=== PATIENT | male | born 1965 | race Caucasian/White ===

== ENCOUNTER 2017-04-27 12:46 | Inpatient (IN) | payer OTHER ==
[~2017-04-27] VITALS: Ht 170.2 cm; Wt 140.0 kg
[2017-04-27] MEDS ORDERED: FUROSEMIDE 40 MG/4 ML VIAL IV ONE (13:15)
[2017-04-27] MEDS ORDERED: LEVOFLOXACIN 500MG 100 ML IV ONE (13:45)
[2017-04-27 14:00] LABS: Basophils # (auto) 0 uL; Basophils % (auto) 0.9 % (0.0-2.0); Eosinophils # (auto) 0.1 uL; Eosinophils % (auto) 1.7 % (0.0-7.0); Hematocrit 29.8 % (41.0-53.0); Hemoglobin 9.8 g/dL (13.5-17.5); Lymphocytes # (auto) 0.9 uL; Lymphocytes % (auto) 17.7 % (10.0-50.0); Mean Corpuscular Hemoglobin 30.3 pg (28.0-32.0); Mean Corpuscular Hgb Conc. 33.1 g/dL (32.0-36.0); Mean Corpuscular Volume 91.6 fL (80.0-100.0); Mean Platelet Volume 6.9 fL (6.9-10.8); Monocytes # (auto) 0.7 uL; Monocytes % (auto) 13.4 % (0.0-12.0); Neutrophils # (auto) 3.4 uL; Neutrophils % (auto) 66.3 % (37.0-80.0); Nucleated Red Blood Cells % 0.1 %; Platelet Count (auto) 310 10^3/uL (140-450); Red Cell Distribution Width 14.6 % (11.8-14.3); White Blood Cell 5.1 10^3/uL (4.4-10.8)
[2017-04-27 14:28] LABS: Albumin 3.1 g/dL (3.4-5.0); Alkaline Phosphatase 97 U/L (45-117); Anion Gap 8 (5-15); Aspartate Aminotransferase 23 U/L (15-37); BUN/Creatinine Ratio 28.9; Bilirubin, Total 0.5 mg/dL (0.2-1.0); Blood Urea Nitrogen 24 mg/dL (7-18); Calcium 8.5 mg/dL (8.5-10.1); Carbon Dioxide 25 mmol/L (21-32); Chloride 102 mmol/L (98-107); GFR African American 125 mL/min; GFR Non-African American 103 mL/min; Glucose 84 mg/dL (74-106); Potassium 3.9 mmol/L (3.5-5.1); Sodium 135 mmol/L (136-145); Total Protein 8.3 g/dL (6.4-8.2)
[2017-04-27 14:32] LABS: B-Type Natriuretic Peptide 54.16 pg/mL (0-100)
[2017-04-27 14:36] LABS: Temperature: 24.1 C (20.0-25.0)
[2017-04-27] MEDS ORDERED: VANCOMYCIN PER PHARMACY 0 MG IV SCH ×2 (14:45→15:15)
[2017-04-27] MEDS ORDERED: LORazepam 0.5 MG TAB PO PRN (14:45)
[2017-04-27] MEDS ORDERED: PIPERACILLIN-TAZOB 3.375GM 100 ML IV ONE (14:45)
[2017-04-27] MEDS ORDERED: TEMAZEPAM 15 MG CAP PO PRN (14:45)
[2017-04-27] MEDS ORDERED: ACETAMINOPHEN 500 MG TAB PO PRN (14:45)
[2017-04-27] MEDS ORDERED: ALBUTEROL SULF 2.5 MG/0.5ML(0.5%) NEB SOLN NEB PRN (14:45)
[2017-04-27] MEDS ORDERED: PROMETHAZINE HCL 25 MG/ML 1ML IV PRN (14:45)
[2017-04-27] MEDS ORDERED: NITROGLYCERIN 0.4 MG SL TAB SL PRN (14:45)
[2017-04-27] MEDS ORDERED: MORPHINE SULF INJ 2 MG/ML SYRINGE 1ML IV PRN ×2 (14:45)
[2017-04-27] MEDS: SODIUM CHLORIDE 0.9% 1,000 ML IV SCH (15:35)
[2017-04-27] MEDS: VANCOMYCIN 750 MG in D5W 5% 250 ML IV SCH (16:50)
[2017-04-27] MEDS: ALBUTEROL SULF 2.5 MG/0.5ML(0.5%) NEB SOLN NEB SCH (18:19)
[2017-04-27] MEDS: PIPERACILLIN-TAZOB 3.375GM 100 ML IV SCH ×4 (19:04→23:31)
[2017-04-27 21:30] VITALS: BP 109/72
[2017-04-27 21:33] VITALS: BP 128/77
[2017-04-27 21:35] VITALS: BP 109/72
[2017-04-27] MEDS ORDERED: DAPS25TA PO (22:13)
[2017-04-27] MEDS ORDERED: ELVI1TAB4 PO (22:13)
[2017-04-28] MEDS: ALBUTEROL SULF 2.5 MG/0.5ML(0.5%) NEB SOLN NEB SCH ×4 (00:12→18:33)
[2017-04-28] MEDS: SODIUM CHLORIDE 0.9% 1,000 ML IV SCH ×2 (03:51→17:21)
[2017-04-28] MEDS: VANCOMYCIN 750 MG in D5W 5% 250 ML IV SCH (04:00)
[2017-04-28] MEDS: PIPERACILLIN-TAZOB 3.375GM 100 ML IV SCH ×3 (04:02→13:33)
[2017-04-28 05:00] VITALS: BP 106/74
[2017-04-28 06:40] LABS: Albumin 2.4 g/dL (3.4-5.0); Calcium 8.1 mg/dL (8.5-10.1); Potassium 4.1 mmol/L (3.5-5.1)
[2017-04-28 06:43] LABS: BUN/Creatinine Ratio 24.1
[2017-04-28 06:46] LABS: Bilirubin, Total 0.5 mg/dL (0.2-1.0); Total Protein 6.8 g/dL (6.4-8.2)
[2017-04-28 08:00] VITALS: BP 98/59
[2017-04-28] MEDS: HYDROcodone-ACET 5/325MG TAB PO PRN ×2 (08:52→15:15)
[2017-04-28 09:00] VITALS: BP 103/65
[2017-04-28] MEDS ORDERED: DAPSONE 25 MG PO SCH (10:00)
[2017-04-28] MEDS ORDERED: ENOXAPARIN SOD 40 MG/0.4 ML SYRINGE SC SCH (10:00)
[2017-04-28] MEDS ORDERED: [UNRECOGNIZED DRUG - REMARK] PO SCH (10:00)
[2017-04-28] MEDS ORDERED: LEVOFLOXACIN 500MG 100 ML IV SCH (10:00)
[2017-04-28] MEDS ORDERED: IOHEXOL 350 MG/ML 100ML IJ ONE (11:23)
[2017-04-28] MEDS: GENVOYA PO SCH (11:34)
[2017-04-28 13:00] VITALS: BP_SYST 107; BP_SYST 129; BP_DIAS 71; BP_DIAS 89
[2017-04-28 17:00] VITALS: BP 112/77
[2017-04-28] MEDS ORDERED: TUBERCULIN PPD 5 UNIT/0.1 ML ID ONE (17:15)
[2017-04-28] MEDS: IBUPROFEN 600 MG TAB PO SCH ×2 (17:21→21:41)
[2017-04-28 21:15] VITALS: BP 103/56
[2017-04-28] MEDS: COLCHICINE 0.6 MG CAP PO SCH (21:40)
[2017-04-29 05:00] VITALS: BP 98/59
[2017-04-29 05:11] LABS: Hemoglobin 8.9 g/dL (12.6-17.7); Immature Granulocytes 0 % (Not Estab.); MCV 91 fL (79-97); Monocytes 13 % (Not Estab.); Neutrophils 62 % (Not Estab.); Neutrophils (Absolute) 3.2 x10E3/uL (1.4-7.0); Platelets 329 x10E3/uL (150-379); RBC 2.97 x10E6/uL (4.14-5.80); RDW 14.4 % (12.3-15.4); WBC 5.4 x10E3/uL (3.4-10.8)
[2017-04-29] MEDS: ALBUTEROL SULF 2.5 MG/0.5ML(0.5%) NEB SOLN NEB SCH ×4 (05:52→19:32)
[2017-04-29] MEDS: IBUPROFEN 600 MG TAB PO SCH ×3 (06:20→22:00)
[2017-04-29] MEDS: SODIUM CHLORIDE 0.9% 1,000 ML IV SCH (06:20)
[2017-04-29 06:47] LABS: Albumin 2.2 g/dL (3.4-5.0); BUN/Creatinine Ratio 24.3; Bilirubin, Total 0.7 mg/dL (0.2-1.0); Calcium 7.9 mg/dL (8.5-10.1); Potassium 4.3 mmol/L (3.5-5.1)
[2017-04-29 08:00] VITALS: BP 109/68
[2017-04-29 09:33] VITALS: BP 109/68
[2017-04-29] MEDS: GENVOYA PO SCH (10:00)
[2017-04-29] MEDS: COLCHICINE 0.6 MG CAP PO SCH ×2 (10:56→22:00)
[2017-04-29] MEDS: PANTOPRAZOLE 40 MG TAB PO SCH ×2 (10:56→22:00)
[2017-04-29 12:07] LABS: Absolute CD 4 Helper 260 /uL (359-1519)
[2017-04-29 14:19] VITALS: BP 112/68
[2017-04-29 17:16] VITALS: BP 111/64
[2017-04-29 22:00] VITALS: BP 117/66
[2017-04-29] MEDS ORDERED: DAPSONE PO SCH (22:00)
[2017-04-29] MEDS: CLARITHROMYCIN 500 MG TAB PO SCH (22:00)
[2017-04-30] MEDS: ALBUTEROL SULF 2.5 MG/0.5ML(0.5%) NEB SOLN NEB SCH ×4 (00:16→18:54)
[2017-04-30 05:26] VITALS: BP 107/58
[2017-04-30] MEDS: IBUPROFEN 600 MG TAB PO SCH ×3 (06:00→22:01)
[2017-04-30 08:00] VITALS: BP 109/61
[2017-04-30 09:58] VITALS: BP 109/61
[2017-04-30] MEDS: GENVOYA PO SCH (10:00)
[2017-04-30] MEDS: CLARITHROMYCIN 500 MG TAB PO SCH ×2 (10:00→22:01)
[2017-04-30] MEDS: COLCHICINE 0.6 MG CAP PO SCH ×2 (11:06→22:01)
[2017-04-30] MEDS: PANTOPRAZOLE 40 MG TAB PO SCH ×2 (11:06→22:01)
[2017-04-30 13:16] VITALS: BP 122/76
[2017-04-30 16:59] VITALS: BP 113/71
[2017-04-30 21:53] VITALS: BP 114/77
[2017-05-01] VITALS (7 sets, daily range): BP systolic 107–126; BP diastolic 66–77
[2017-05-01] MEDS: ALBUTEROL SULF 2.5 MG/0.5ML(0.5%) NEB SOLN NEB SCH ×3 (00:31→11:21)
[2017-05-01] MEDS: IBUPROFEN 600 MG TAB PO SCH ×2 (05:53→14:11)
[2017-05-01] MEDS: PANTOPRAZOLE 40 MG TAB PO SCH (10:38)
[2017-05-01] MEDS: GENVOYA PO SCH (10:38)
[2017-05-01] MEDS: COLCHICINE 0.6 MG CAP PO SCH (10:39)
[2017-05-01] MEDS: CLARITHROMYCIN 500 MG TAB PO SCH (10:39)
== END 2017-05-01 19:19 | disposition home or self-care (01) | DRG 314 ==
LOC: ER 12:46 → TELE 12:47 → TELE-CENTR 21:30
PROVIDERS: ADMIT Internal Medicine; ATTEND Internal Medicine
DX: I30.9 Acute pericarditis, unspecified (principal); J18.9 Pneumonia, unspecified organism; J96.01 Acute respiratory failure with hypoxia; J90 Pleural effusion, not elsewhere classified; E44.0 Moderate protein-calorie malnutrition; C46.9 Kaposi's sarcoma, unspecified; J98.11 Atelectasis; Z68.42 Body mass index [BMI] 45.0-49.9, adult; D63.8 Anemia in other chronic diseases classified elsewhere; Z85.828 Personal history of other malignant neoplasm of skin; L98.9 Disorder of the skin and subcutaneous tissue, unspecified; Z88.2 Allergy status to sulfonamides; G89.29 Other chronic pain
CPT/HCPCS: 36415; 71020; 71275; 73610; 80053; 83605; 83615; 83880; 84484; 85025; 85379; 86360; 87040; 93005; 93306; 93970; 94640; 94761; 96365; 96367; 96375; J1956; J2543; J7060

== ENCOUNTER 2017-07-11 09:24 | Inpatient (IN) | payer OTHER ==
[~2017-07-11] VITALS: Ht 170.2 cm; Wt 72.0 kg
[~2017-07-11 09:24] MED LIST: ELVI1TAB4 PO
[2017-07-11] MEDS ORDERED: SODIUM CHLORIDE 0.9% 500 ML IVB ONE (10:54)
[2017-07-11] MEDS ORDERED: HYDROmorphone HCL 2 MG/ML VL IV ONE (11:00)
[2017-07-11] MEDS ORDERED: ONDANSETRON HCL 4 MG/2 ML VIAL IV ONE (11:00)
[2017-07-11 11:02] LABS: Red Blood Cells 1.75 10^6/uL (4.5-5.90)
[2017-07-11 11:04] LABS: Platelet Count (auto) 56 10^3/uL (140-450); Red Cell Distribution Width 18.8 % (11.8-14.3); White Blood Cell 5.7 10^3/uL (4.4-10.8)
[2017-07-11 11:20] LABS: Hemoglobin 5.6 g/dL (13.5-17.5)
[2017-07-11 11:21] LABS: Band Neutrophils % (manual) 0; Basophils % (manual) 0 (0.0-2.0); Blast Cells 0; Eosinophils % (manual) 0 (0-7); Metamyelocytes % 0; Myelocytes % 0; Promyelocytes % 0; Reactive Lymphocytes 0
[2017-07-11 11:23] LABS: Albumin 1.5 g/dL (3.4-5.0); BUN/Creatinine Ratio 26.2; Bilirubin, Total 1.5 mg/dL (0.2-1.0); Calcium 7.4 mg/dL (8.5-10.1); Potassium 4.4 mmol/L (3.5-5.1)
[2017-07-11 11:38] LABS: Lymphocytes % (manual) 15 (10.0-50.0); Monocytes % (manual) 8 (0-12)
[2017-07-11] MEDS ORDERED: ONDANSETRON HCL 4 MG/2 ML VIAL IV PRN (14:00)
[2017-07-11] MEDS ORDERED: MORPHINE SULFATE 4 MG/ML SYR/VIAL IV PRN ×2 (14:00)
[2017-07-11] MEDS ORDERED: NITROGLYCERIN 0.4 MG SL TAB SL PRN (14:00)
[2017-07-11] MEDS: SODIUM CHLORIDE 0.9% 1,000 ML IV SCH (14:18)
[2017-07-11] MEDS: cefTRIAXone 1GM/10ml IVPUSH 10 ML IV SCH (14:24)
[2017-07-11] MEDS ORDERED: SODIUM CHLORIDE 0.9% 1,000 ML IV ONE (14:45)
[2017-07-11 15:30] LABS: INR 1.05 (0.9-1.15); Prothrombin Time 11.5 sec (9.37-12.3)
[2017-07-11] MEDS ORDERED: FUROSEMIDE 40 MG/4 ML VIAL IV ONE (20:30)
[2017-07-11] MEDS ORDERED: MORPHINE SULF INJ 2 MG/ML SYRINGE 1ML ONE (21:13)
[2017-07-12] VITALS (7 sets, daily range): BP systolic 96–110; BP diastolic 55–64
[2017-07-12] MEDS: HYDROcodone-ACET 5/325MG TAB PO PRN ×3 (02:27→20:10)
[2017-07-12] MEDS: SODIUM CHLORIDE 0.9% 1,000 ML IV SCH (03:37)
[2017-07-12 07:30] LABS: Eosinophils # (auto) 0.1 uL; Lymphocytes # (auto) 0.8 uL; Neutrophils # (auto) 3.4 uL; Nucleated Red Blood Cells % 0.6 %
[2017-07-12 07:32] LABS: Basophils # (auto) 0.1 uL; Basophils % (auto) 1.4 % (0.0-2.0); Eosinophils % (auto) 1.4 % (0.0-7.0); Hematocrit 20.4 % (41.0-53.0); Lymphocytes % (auto) 15.9 % (10.0-50.0); Mean Corpuscular Hemoglobin 29.6 pg (28.0-32.0); Mean Corpuscular Hgb Conc. 33.4 g/dL (32.0-36.0); Mean Corpuscular Volume 88.5 fL (80.0-100.0); Monocytes # (auto) 0.8 uL; Monocytes % (auto) 16.1 % (0.0-12.0); Neutrophils % (auto) 65.2 % (37.0-80.0); Platelet Count (auto) 57 10^3/uL (140-450); White Blood Cell 5.3 10^3/uL (4.4-10.8)
[2017-07-12 07:44] LABS: BUN/Creatinine Ratio 27.4; Calcium 7.2 mg/dL (8.5-10.1); Potassium 4.4 mmol/L (3.5-5.1)
[2017-07-12 07:48] LABS: Red Cell Distribution Width 21.6 % (11.8-14.3)
[2017-07-12 07:58] LABS: Hemoglobin 6.8 g/dL (13.5-17.5)
[2017-07-12] MEDS: cefTRIAXone 1GM/10ml IVPUSH 10 ML IV SCH (10:53)
[2017-07-12] MEDS: ALBUMIN 25% 50 ML IV SCH ×2 (15:27→21:59)
[2017-07-12 22:41] LABS: Urine Bacteria NONE SEEN /hpf (None Seen); Urine Blood Negative /uL (Negative); Urine Specific Gravity 1.012 (1.001-1.035); Urine WBC 3 /hpf (0 - 3)
[2017-07-12 22:56] LABS: Protein, Urine 61.3 mg/dL (0.0-11.9)
[2017-07-13] VITALS (10 sets, daily range): BP systolic 91–119; BP diastolic 49–66
[2017-07-13] MEDS: HYDROcodone-ACET 5/325MG TAB PO PRN (00:11)
[2017-07-13] MEDS: ALBUMIN 25% 50 ML IV SCH ×3 (05:45→23:01)
[2017-07-13] MEDS: HYDROmorphone HCL 2 MG/ML VL IV PRN ×2 (06:25→17:21)
[2017-07-13 07:43] LABS: Mean Corpuscular Hgb Conc. 33.1 g/dL (32.0-36.0); Mean Corpuscular Volume 90.5 fL (80.0-100.0); Platelet Count (auto) 41 10^3/uL (140-450); White Blood Cell 3.8 10^3/uL (4.4-10.8)
[2017-07-13 07:46] LABS: Hematocrit 18.2 % (41.0-53.0); Red Blood Cells 2.01 10^6/uL (4.5-5.90)
[2017-07-13 07:57] LABS: Red Cell Distribution Width 22.6 % (11.8-14.3)
[2017-07-13 08:00] LABS: Band Neutrophils % (manual) 0; Basophils % (manual) 0 (0.0-2.0); Blast Cells 0; Eosinophils % (manual) 0 (0-7); Myelocytes % 0; Promyelocytes % 0; Reactive Lymphocytes 0
[2017-07-13 08:40] LABS: BUN/Creatinine Ratio 28.1; Potassium 3.8 mmol/L (3.5-5.1)
[2017-07-13 08:56] LABS: Lymphocytes % (manual) 18 (10.0-50.0); Metamyelocytes % 1; Monocytes % (manual) 12 (0-12)
[2017-07-13] MEDS: cefTRIAXone 1GM/10ml IVPUSH 10 ML IV SCH (10:00)
[2017-07-13 16:40] LABS: Hemoglobin 7.8 g/dL (13.5-17.5)
[2017-07-13 16:45] LABS: Hematocrit 23.9 % (41.0-53.0); Mean Corpuscular Hemoglobin 30.3 pg (28.0-32.0); Mean Corpuscular Hgb Conc. 32.6 g/dL (32.0-36.0); Platelet Count (auto) 39 10^3/uL (140-450); Red Blood Cells 2.57 10^6/uL (4.5-5.90); White Blood Cell 4.4 10^3/uL (4.4-10.8)
[2017-07-13 17:10] LABS: Basophils % (manual) 0 (0.0-2.0); Blast Cells 0; Metamyelocytes % 0; Myelocytes % 0; Promyelocytes % 0; Reactive Lymphocytes 0
[2017-07-13 19:05] LABS: Band Neutrophils % (manual) 1; Eosinophils % (manual) 2 (0-7); Lymphocytes % (manual) 21 (10.0-50.0); Monocytes % (manual) 15 (0-12)
[2017-07-14] MEDS: HYDROmorphone HCL 2 MG/ML VL IV PRN ×5 (01:37→18:56)
[2017-07-14 05:14] VITALS: BP 103/65
[2017-07-14] MEDS: ALBUMIN 25% 50 ML IV SCH ×2 (06:12→14:00)
[2017-07-14 06:47] LABS: Hemoglobin 7.3 g/dL (13.5-17.5); Platelet Count (auto) 37 10^3/uL (140-450)
[2017-07-14 06:48] LABS: Hematocrit 22.1 % (41.0-53.0); Mean Corpuscular Hgb Conc. 33.1 g/dL (32.0-36.0); Mean Corpuscular Volume 90.6 fL (80.0-100.0); Red Blood Cells 2.44 10^6/uL (4.5-5.90)
[2017-07-14 06:57] LABS: Basophils % (manual) 0 (0.0-2.0); Blast Cells 0; Metamyelocytes % 0; Myelocytes % 0; Promyelocytes % 0; Reactive Lymphocytes 0
[2017-07-14 07:08] LABS: BUN/Creatinine Ratio 28.7; Calcium 7.4 mg/dL (8.5-10.1); Potassium 3.9 mmol/L (3.5-5.1)
[2017-07-14 08:45] LABS: Band Neutrophils % (manual) 2; Eosinophils % (manual) 3 (0-7); Lymphocytes % (manual) 8 (10.0-50.0); Monocytes % (manual) 15 (0-12)
[2017-07-14 09:00] VITALS: BP 108/59
[2017-07-14] MEDS: cefTRIAXone 1GM/10ml IVPUSH 10 ML IV SCH (09:12)
[2017-07-14] MEDS: HYDROcodone-ACET 5/325MG TAB PO PRN ×2 (09:12→13:20)
[2017-07-14 12:58] VITALS: BP 106/58
[2017-07-14 17:00] VITALS: BP 115/64
[2017-07-14 21:49] LABS: Hematocrit 23.7 % (41.0-53.0); Hemoglobin 7.8 g/dL (13.5-17.5)
[2017-07-14 22:00] VITALS: BP 129/90
== END 2017-07-14 22:20 | disposition home or self-care (01) | DRG 682 ==
LOC: EDUNIT# 09:24 → EDBD 09:24 → ER 09:24 → TELE 09:25 → TELE-WESTW 07-12 09:00
PROVIDERS: ADMIT Internal Medicine; ATTEND Internal Medicine
PROC: 30233N1 Transfusion of Nonautologous Red Blood Cells into Peripheral Vein, Percutaneous Approach (ICD-10-PCS; principal; 2017-07-11)
PROC: 0W9B3ZZ Drainage of Left Pleural Cavity, Percutaneous Approach (ICD-10-PCS; 2017-07-12)
DX: N17.9 Acute kidney failure, unspecified (principal); B20 Human immunodeficiency virus [HIV] disease; E43 Unspecified severe protein-calorie malnutrition; J90 Pleural effusion, not elsewhere classified; D69.6 Thrombocytopenia, unspecified; C46.9 Kaposi's sarcoma, unspecified; R16.2 Hepatomegaly with splenomegaly, not elsewhere classified; D64.9 Anemia, unspecified; E86.0 Dehydration; R10.9 Unspecified abdominal pain; Z68.24 Body mass index [BMI] 24.0-24.9, adult; Z88.5 Allergy status to narcotic agent; Z88.2 Allergy status to sulfonamides; Z90.49 Acquired absence of other specified parts of digestive tract; Z85.89 Personal history of malignant neoplasm of other organs and systems
CPT/HCPCS: 10030; 36415; 71045; 74176; 76604; 76942; 80048; 80053; 81001; 82570; 83690; 83735; 83935; 83986; 84156; 84300; 85007; 85014; 85018; 85025; 85027; 85610; 86360; 86850; 86860; 86870; 86880; 86900; 86901; 86905; 86906; 86920; 86970; 86971; 87081; 87205; 89051; 93005; 93971; 94761; 96361; 96374; 96375; 99291; J2405

== ENCOUNTER 2017-07-22 11:35 | Emergency (ER) | payer OTHER | END 2017-07-22 11:42 | disposition left against medical advice (07) | LOC: ER 11:35 | DX: Z48.01 Encounter for change or removal of surgical wound dressing (principal); Z53.21 Procedure and treatment not carried out due to patient leaving prior to being seen by health care provider ==